=== PATIENT | female | born 1995 | race African-American/Black ===

== ENCOUNTER 2017-11-04 10:37 | Emergency (ER) | payer BC ==
[~2017-11-04] VITALS: Ht 160 cm; Wt 68.0 kg
[2017-11-04 10:41] VITALS: BP 146/105
[2017-11-04] MEDS ORDERED: KETOROLAC TROMETH 60MG/2ML VIAL IM ONE (12:45)
== END 2017-11-04 12:39 | disposition home or self-care (01) ==
LOC: ER 10:37
DX: M54.6 Pain in thoracic spine (principal); V43.52XA Car driver injured in collision with other type car in traffic accident, initial encounter; Y93.89 Activity, other specified; Y99.8 Other external cause status; Y92.410 Unspecified street and highway as the place of occurrence of the external cause
CPT/HCPCS: 96372; 99283; J1885

== ENCOUNTER → 2018-07-08 | Outpatient (CLI) | payer BC | END | disposition home or self-care (01) | LOC: LAB 13:00 | PROVIDERS: ATTEND Obstetrics & Gynecology | DX: N87.0 Mild cervical dysplasia (principal) ==